=== PATIENT | male | born 1975 | race Caucasian/White ===

== ENCOUNTER 2024-04-05 13:29 | Emergency (ER) | payer OTHER ==
[2024-04-05 13:42] VITALS: BP 152/84; PULSE 103; RESP 18; TEMP 98; BMI 25.8
[2024-04-05] MEDS ORDERED: DIPHTH,PERTUSS(ACELL),TET 0.5 ML DISP.SYRIN IM ONE (15:45)
[2024-04-05] MEDS: DIPHTH,PERTUSS(ACELL),TET 0.5 ML DISP.SYRIN IM ONE (15:47)
== END 2024-04-05 15:49 | disposition home or self-care (01) ==
LOC: JERFT 13:29
PROC: 0HQ1XZZ Repair Face Skin, External Approach (ICD-10-PCS; principal; 2024-04-05)
PROC: 3E0234Z Introduction of Serum, Toxoid and Vaccine into Muscle, Percutaneous Approach (ICD-10-PCS; 2024-04-05)
DX: S01.111A Laceration without foreign body of right eyelid and periocular area, initial encounter (principal); Z23 Encounter for immunization; W10.8XXA Fall (on) (from) other stairs and steps, initial encounter
CPT/HCPCS: 12013; 90471; 90715; 99284-25

== ENCOUNTER 2024-04-08 11:49 | Emergency (ER) | payer SELFPAY ==
[2024-04-08 11:55] VITALS: BP 123/77; PULSE 83; RESP 18; TEMP 98.7; BMI 25.8
[2024-04-08] MEDS ORDERED: ONDANSETRON 4 MG/2 ML VIAL ONE (12:34)
[2024-04-08] MEDS: ONDANSETRON 4 MG/2 ML VIAL IVPUSH ONE (12:56)
[2024-04-08] MEDS: SODIUM CHLORIDE 1,000 ML IV STA (12:56)
[2024-04-08 13:15] LABS: BASO % 0.2 % (0-2.0); EOS % 0.3 % (0-4.5); HEMATOCRIT 41.3 % (35.4-49); HEMOGLOBIN 13.8 GM/dL (11.7-16.9); LYMPH % 18.3 % (8-40); MCH 31.3 pg (25.7-33.7); MCHC 33.3 g/dl (32.0-35.9); MEAN CELL VOLUME 93.9 fl (80-96); MEAN PLT VOLUME 9.1 fl (7.5-11.1); MONO % 8.1 % (3.8-10.2); NEUT % 73.1 % (42.8-82.8); PLATELET COUNT 184 10^3/uL (134-434); RDW 13.6 % (11.9-15.9); WHITE BLOOD COUNT 6.5 K/mm3 (4.0-10.0)
[2024-04-08 13:18] LABS: PROTHROMBIN TIME (PATIENT) 11.3 SEC (9.7-13.0)
[2024-04-08 13:21] LABS: ACTIVATED PTT 29.2 SECONDS (25.2-36.5)
[2024-04-08 13:34] LABS: POTASSIUM 4.3 mmol/L (3.5-5.1)
[2024-04-08 13:35] LABS: CALCIUM 9.6 mg/dL (8.5-10.1)
[2024-04-08 13:36] LABS: BLOOD UREA NITROGEN 14.8 mg/dL (7-18); MAGNESIUM 2.2 mg/dL (1.8-2.4)
[2024-04-08 13:40] LABS: BILIRUBIN,TOTAL 0.6 mg/dL (0.2-1); TOT PROT 7.9 g/dl (6.4-8.2)
[2024-04-08] MEDS ORDERED: ACETAMINOPHEN INJECTION 100 ML IVPB ONE (13:45)
[2024-04-08] MEDS: ACETAMINOPHEN 1000 MG/100 ML BAG IVPB ONE (13:48)
== END 2024-04-08 16:33 | disposition home or self-care (01) ==
LOC: JER 11:49
PROC: 3E033NZ Introduction of Analgesics, Hypnotics, Sedatives into Peripheral Vein, Percutaneous Approach (ICD-10-PCS; principal; 2024-04-08)
PROC: 3E033GC Introduction of Other Therapeutic Substance into Peripheral Vein, Percutaneous Approach (ICD-10-PCS; 2024-04-08)
PROC: 3E0337Z Introduction of Electrolytic and Water Balance Substance into Peripheral Vein, Percutaneous Approach (ICD-10-PCS; 2024-04-08)
DX: S06.0X0A Concussion without loss of consciousness, initial encounter (principal); R11.0 Nausea; R53.1 Weakness; W01.0XXA Fall on same level from slipping, tripping and stumbling without subsequent striking against object, initial encounter; Z20.822 Contact with and (suspected) exposure to COVID-19
CPT/HCPCS: 0241U-QW; 36415; 70450-TC; 80053; 83735; 84484; 85025; 85610; 85730; 93005; 93010; 99285-25; J0131

== ENCOUNTER 2024-04-10 11:42 | Emergency (ER) | payer SELFPAY ==
[2024-04-10 11:47] VITALS: BP 158/85; PULSE 79; RESP 19; TEMP 98.2; BMI 25.1
== END 2024-04-10 12:18 | disposition home or self-care (01) ==
LOC: JERFT 11:42
DX: Z48.02 Encounter for removal of sutures (principal)
CPT/HCPCS: 99281-25